=== PATIENT | female | born 1930 | race Two or more races ===

== ENCOUNTER 2019-09-22 10:58 | Inpatient (IN) | payer MEDICARE, MEDICAID ==
[~2019-09-22] VITALS: Ht 154.9 cm; Wt 61.8 kg
--- NOTE | 2019-09-22 11:30 | NUR ---
patient bibra from home, c/o L hip pain s/p fall from bed yesterday. On room air, breathing evenly and unlabored, connected to the monitor and pulse ox. kept comfortable, will continue to monitor accordingly.
[2019-09-22 11:41] LABS: CARBON DIOXIDE 27 mmol/L (21-32); CHLORIDE 111 mmol/L (98-107); CREATININE 2.8 mg/dL (0.6-1.3); GLUCOSE 133 mg/dL (74-106); POTASSIUM 4.1 mmol/L (3.5-5.1); SODIUM SERUM 146 mmol/L (136-145); UREA NITROGEN, BLOOD 61 mg/dL (7-18)
[2019-09-22 11:46] LABS: BASOPHILS # (AUTO) 0.1 /CMM (0.0-0.2); BASOPHILS % (AUTO) 0.7 % (0.0-2.0); EOSINOPHILS % (AUTO) 0.9 % (0.0-6.0); HEMATOCRIT 37 % (33-45); HEMOGLOBIN 12.2 g/dL (11.5-14.8); LYMPHOCYTES # (AUTO) 1.6 /CMM (0.8-4.8); LYMPHOCYTES % (AUTO) 21.8 % (20.0-44.0); MEAN CORPUSCULAR HGB CONC 33 g/dl (31.0-36.0); MEAN CORPUSCULAR VOLUME 93 fL (82-100); MONOCYTES # (AUTO) 0.7 /CMM (0.1-1.30); MONOCYTES % (AUTO) 8.7 % (2.0-12.0); NEUTROPHILS # (AUTO) 5.1 /CMM (1.8-8.9); NEUTROPHILS % (AUTO) 67.9 % (43.0-81.0); PLATELET COUNT (AUTO) 195 /CMM (150-450); RED BLOOD CELL COUNT(AUTO) 4.04 MIL/uL (4.0-5.2); WHITE BLOOD COUNT (AUTO) 7.5 K/uL (4.3-11.0)
[2019-09-22 11:47] LABS: ALANINE AMINOTRANSFERASE 17 U/L (12-78); ALKALINE PHOSPHATASE 144 U/L (46-116); ASPARTATE AMINOTRANSFERASE 16 U/L (15-37); BILIRUBIN,DIRECT 0.1 mg/dL (0.0-0.2); BILIRUBIN,TOTAL 0.3 mg/dL (0.2-1.0); TOTAL PROTEIN, SERUM 6.9 g/dL (6.4-8.2)
--- NOTE | 2019-09-22 12:00 | NUR ---
malachi at bedside for x-ray.
[2019-09-22 12:19] LABS: LYMPHOCYTES % (MANUAL) 19 % (16-48); MONOCYTES % (MANUAL) 6 % (0-11.0); NEUTROPHILS % (MANUAL) 75 (42-76)
--- NOTE | 2019-09-22 12:27 | NUR ---
CALLED BRENDA REED, REMBERTO LING
[2019-09-22] MEDS ORDERED: ALLO100T PO (12:32)
[2019-09-22] MEDS ORDERED: PREG75CA PO (12:32)
[2019-09-22] MEDS ORDERED: ERGO500014 PO (12:32)
[2019-09-22] MEDS ORDERED: FERR325T28 PO (12:32)
[2019-09-22] MEDS ORDERED: MEMA5TAB42 PO (12:32)
[2019-09-22] MEDS ORDERED: INSU100I4 (12:32)
[2019-09-22] MEDS ORDERED: SENN-261 PO (12:32)
[2019-09-22] MEDS ORDERED: LEVO100T9 PO (12:32)
[2019-09-22] MEDS ORDERED: ESOM40CA52 PO (12:32)
[2019-09-22] MEDS ORDERED: AMLO5TAB9 PO (12:32)
[2019-09-22] MEDS ORDERED: DONE10TA44 PO (12:32)
[2019-09-22] MEDS ORDERED: INSU100V7 SUBCUT (12:32)
[2019-09-22] MEDS ORDERED: DOCU-270 PO (12:32)
--- NOTE | 2019-09-22 12:38 | NUR ---
CALLED NATAN PAGED EDNA GUILLERMO
--- NOTE | 2019-09-22 13:16 | NUR ---
209-2 [facility]
--- NOTE | 2019-09-22 13:23 | NUR ---
report given to Yuki Charles for moriah.
[2019-09-22] MEDS ORDERED: MORPHINE SULFATE INJ 2 MG/ML DISP.SYRIN IV ONE (14:00)
[2019-09-22] MEDS ORDERED: ONDANSETRON HCL/PF - ER 4 MG/2 ML VIAL IV ONE (14:00)
[2019-09-22] MEDS ORDERED: IV NS 0.9% 1,000 ML BAG IV ONE (14:00)
[2019-09-22] MEDS ORDERED: ONDANSETRON HCL/PF 4 MG/2 ML VIAL ONE (14:04)
[2019-09-22] MEDS ORDERED: MORPHINE SULFATE INJ 4 MG/ML DISP.SYRIN ONE (14:04)
--- NOTE | 2019-09-22 14:30 | NUR ---
TELEPHONE ANSWERER NOTES PATIENT WAS ADMITTED FROM ER 88 Y/OLD FEMALE QATARI SPEAKER ON Dx OF LEFT HIP Fx. PATIENT A/O X2, FORGETFUL, BUT REDIRECTABLE. PATIENT WAS COMPLAINING OF LEFT HIP PAIN 8/10 PER PAIN SCALE. NO ACUTE RESPIRATORY DISTRESS, BREATHING UNLABORED. V/S TAKEN BP 121/59, P-66, R-19, 02-95 ROOM AIR, T-97.8.IV ACCESS ON RIGHT AC AREA INTACT, SKIN ASSESSMENT DONE CLEAR , HAS LEFT LEG TOES AMPUTATION, AND RIGHT BIG TOE AMPUTATION. PATIENT INCONTINENT USING DIAPER, NEEDS ATTENDED AND ANTICIPATED. HOSPITALIST CECILE GUILLERMO AWARE OF NEW PATIENT AND MEDICATION, CALL LIGHT WITHIN TO REACH. CONTINUED MONITORING.
--- NOTE | 2019-09-22 14:37 | NUR ---
wheeled patient via gurney accompanied by emt in no distress, RN at bedside to assume care.
[2019-09-22 14:41] VITALS: BP 121/59
[2019-09-22] MEDS ORDERED: ONDANSETRON HCL/PF 4 MG/2 ML VIAL IVP PRN (15:00)
[2019-09-22] MEDS ORDERED: Z GUARD REMEDY 2 OZ OINT TP PRN (15:00)
[2019-09-22] MEDS ORDERED: SENNOSIDES 8.6 MG TABLET PO PRN (15:00)
[2019-09-22] MEDS ORDERED: ACETAMINOPHEN 325 MG TABLET PO PRN (15:00)
[2019-09-22] MEDS ORDERED: DEXTROSE 50%-WATER 50 ML DISP.SYRIN IV PRN (15:00)
[2019-09-22 15:30] VITALS: BP 121/59
[2019-09-22] MEDS: IV 1/2NS 1000 ML 1,000 ML IV PRN (15:48)
[2019-09-22] MEDS: MORPHINE SULFATE INJ 2 MG/ML DISP.SYRIN IV PRN ×2 (15:54→23:56)
--- NOTE | 2019-09-22 15:54 | NUR ---
rn notes administered morphine sulfate 2 mg/ml iv push for left hip pain 03/28 per patient request. v/s taken bp 121/59, p-66, r-19. call light within to reach, safety precaution maintained all the time.
[2019-09-22] MEDS: PREGABALIN 25 MG CAPSULE PO SCH (18:14)
[2019-09-22] MEDS: MEMANTINE HCL 5 MG TABLET PO SCH (18:14)
[2019-09-22] MEDS: DOCUSATE SODIUM 100 MG CAPSULE PO SCH (18:14)
[2019-09-22] MEDS: BLOOD SUGAR DIAGNOSTIC 1 EACH STRIP IN SCH ×2 (18:14→21:44)
[2019-09-22] MEDS: INSULIN LISPRO/ASPART 100 UNIT/ML CARTRIDGE SQ SCH (18:16)
--- NOTE | 2019-09-22 18:25 | NUR ---
RN NOTES BS-169MG/DL COVERAGE GIVEN, ADMINISTERED SCHEDULED MEDICATION. MEDICATION WERE ADMINISTERED FOR PAIN EFFECTIVE, PATIENTS DAUGHTER SIGN CONSENT FOR FOR SURGERY WHICH IS SCHEDULED TOMORROW , 1750 PM. V/S STABLE . PATIENT TOLERATED DINNER 30% WITH MINIMAL ASSIST. INFUSING 1/2 NS AT 75 ML/HR ON RIGHT AC ARE. CALL LIGHT WITHIN TO REACH, FAMILY NEXT TO THE BED. ENDORSED ONCOMING NURSE FOLLOW PLAN OF CARE.
--- NOTE | 2019-09-22 19:35 | NUR ---
RN OPEN NOTES RECEIVED PATIENT AWAKE LYING IN BED. A/OX2. NO SIGNS OF DISTRESS OR DISCOMFORT. BREATHING EVEN AND UNLABORED. IV ACCESS IN RAC WITH 1/2 NS INFUSING, PATENT AND INTACT, NO SIGNS OF REDNESS OR INFILTRATION. BED IN LOW LOCKED POSITION WITH SIDE RAILS X2. CALL LIGHT WITHIN REACH. WILL CONTINUE TO MONITOR.
[2019-09-22 20:00] VITALS: BP 107/49
[2019-09-22] MEDS: DONEPEZIL 5 MG TABLET PO SCH (21:41)
[2019-09-22] MEDS: INSULIN GLARGINE, 100 UNIT/ML CARTRIDGE SQ SCH (21:44)
[2019-09-23] MEDS: IV 1/2NS 1000 ML 1,000 ML IV PRN (05:31)
[2019-09-23] MEDS: MORPHINE SULFATE INJ 2 MG/ML DISP.SYRIN IV PRN ×3 (06:16→20:31)
[2019-09-23] MEDS: BLOOD SUGAR DIAGNOSTIC 1 EACH STRIP IN SCH ×4 (06:17→21:03)
[2019-09-23 06:35] LABS: BASOPHILS % (AUTO) 0.7 % (0.0-2.0); EOSINOPHILS % (AUTO) 1.4 % (0.0-6.0); HEMATOCRIT 35 % (33-45); HEMOGLOBIN 11.2 g/dL (11.5-14.8); LYMPHOCYTES # (AUTO) 1.6 /CMM (0.8-4.8); LYMPHOCYTES % (AUTO) 24.5 % (20.0-44.0); MEAN CORPUSCULAR HGB CONC 32 g/dl (31.0-36.0); MEAN CORPUSCULAR VOLUME 92 fL (82-100); MONOCYTES # (AUTO) 0.6 /CMM (0.1-1.30); MONOCYTES % (AUTO) 9.3 % (2.0-12.0); NEUTROPHILS # (AUTO) 4.2 /CMM (1.8-8.9); NEUTROPHILS % (AUTO) 64.1 % (43.0-81.0); PLATELET COUNT (AUTO) 176 /CMM (150-450); RED BLOOD CELL COUNT(AUTO) 3.77 MIL/uL (4.0-5.2); WHITE BLOOD COUNT (AUTO) 6.6 K/uL (4.3-11.0)
--- NOTE | 2019-09-23 06:58 | NUR ---
RN CLOSING NOTES PATIENT RESTING COMFORTABLY IN BED, EASILY AROUSABLE. A/OX2. NO SIGNS OF DISTRESS OR DISCOMFORT. BREATHING EVEN AND UNLABORED. IV ACCESS IN RAC WITH 1/2 NS INFUSING, PATENT AND INTACT, NO SIGNS OF REDNESS OR INFILTRATION. ALL NEEDS MET. NO SIGNIFICANT CHANGES THROUGH THE NIGHT. PATIENT KEPT CLEAN DRY AND COMFORTABLE. BED IN LOW LOCKED POSITION WITH SIDE RAILS X2. CALL LIGHT WITHIN REACH. WILL ENDORSE TO AM SHIFT FOR KIM.
[2019-09-23 07:09] LABS: ALANINE AMINOTRANSFERASE 37 U/L (12-78); ALBUMIN 2.6 g/dL (3.4-5.0); ALKALINE PHOSPHATASE 166 U/L (46-116); ASPARTATE AMINOTRANSFERASE 64 U/L (15-37); BILIRUBIN,TOTAL 0.4 mg/dL (0.2-1.0); CALCIUM, SERUM 8.2 mg/dL (8.5-10.1); CARBON DIOXIDE 24 mmol/L (21-32); CHLORIDE 106 mmol/L (98-107); CHOLESTEROL 132 mg/dL (<200); CREATININE 2.6 mg/dL (0.6-1.3); GLUCOSE 102 mg/dL (74-106); HDL CHOLESTEROL 59 mg/dL (40-60); LDL 54 mg/dL (0-99); MAGNESIUM 1.4 mg/dL (1.8-2.4); PHOSPHORUS 4.1 mg/dL (2.5-4.9); SODIUM SERUM 139 mmol/L (136-145); THYROID STIMULATING HORMONE 0.411 uIU/mL (0.358-3.74); TOTAL PROTEIN, SERUM 6.1 g/dL (6.4-8.2); TRIGLYCERIDES 95 mg/dL (30-150); UREA NITROGEN, BLOOD 58 mg/dL (7-18)
[2019-09-23 07:16] LABS: IRON, SERUM 31 ug/dl (50-175); TOTAL IRON BINDING CAPACITY 220 ug/dl (250-450)
[2019-09-23] MEDS ORDERED: IV 1/2NS 1000 ML 1,000 ML IV SCH (07:21)
[2019-09-23] MEDS: INSULIN LISPRO/ASPART 100 UNIT/ML CARTRIDGE SQ SCH ×3 (07:30→17:30)
--- NOTE | 2019-09-23 07:35 | NUR ---
MS RN OPENING NOTES RECEIVED PT IN BED, AWAKE, A/O 2. PT TOLERATING RA, WITH NO ACUTE RESPIRATORY DISTRESS. PT DENIES ANY PAIN OR DISCOMFORT AT THIS TIME. ALSO DENIES ANY CONCERN OR QUESTIONS AT THE MOMENT. IVF 1/2 NS AT 75ML/HR CHANGED TO 200ML/HR PER DR GARVEY X2 BAGS TO RAC G20, INTACT AND FLUID INFUSING WELL. PT ON NPO EXCEPT MEDS AT THIS TIME, IN PREPARATION FOR 5PM SURGERY WITH DR. JAMES. PT KEPT COMFORTABLE IN BED. CALL LIGHT KEPT WITHIN REACH. PT'S BED IN LOWEST, LOCKED POSITION WITH SR X3. WILL CONTINUE PLAN OF CARE.
[2019-09-23 08:00] VITALS: BP 120/58
[2019-09-23] MEDS: MEMANTINE HCL 5 MG TABLET PO SCH ×2 (08:41→17:00)
[2019-09-23] MEDS: PREGABALIN 25 MG CAPSULE PO SCH ×2 (08:41→17:00)
[2019-09-23] MEDS: ALLOPURINOL 100 MG TABLET PO SCH (08:42)
[2019-09-23] MEDS: AMLODIPINE BESYLATE 5 MG TABLET PO SCH (08:42)
[2019-09-23] MEDS: DOCUSATE SODIUM 100 MG CAPSULE PO SCH ×2 (08:42→17:00)
[2019-09-23] MEDS: LEVOTHYROXINE SODIUM 100 MCG TABLET PO SCH (08:42)
[2019-09-23] MEDS: FERROUS SULFATE (325 MG) 325 MG/TAB TABLET PO SCH (08:42)
[2019-09-23] MEDS: PANTOPRAZOLE 40 MG VIAL IV SCH (08:44)
[2019-09-23] MEDS ORDERED: NEXIUM 40 MG VIAL IV SCH (09:00)
[2019-09-23] MEDS ORDERED: LEVOTHYROXINE SODIUM 100 MCG TABLET PO SCH (09:00)
--- NOTE | 2019-09-23 10:04 | NUR ---
MS RN NOTES RECEIVED CALL FROM PHARMACY REGARDING MAGNESIUM LVL THAT THEY CANT REPLACE PER CREA OF 2.6, AGAINST THEIR [PROTOCOL. HOSPITALIST/TS MADE AWARE AND ORDERED 2GMS OF MG VIA IV. ORDER PLACED. PT MADE AWARE. WILL CONTINUE TO MONITOR.
[2019-09-23] MEDS ORDERED: Magnesium 1GM/D5W 100ML PREMIX PIGGYBACK IV ONE (10:30)
[2019-09-23] MEDS: Magnesium 1GM/D5W 100ML PREMIX 100 ML IV SCH ×2 (10:33→11:35)
[2019-09-23] MEDS ORDERED: IV D5/0.45 NACL 1,000 ML IV ONE (12:30)
[2019-09-23] MEDS ORDERED: BACITRACIN 50000 UNITS/VIAL ONE (13:34)
[2019-09-23] MEDS ORDERED: BUPIVACAINE 0.5 % PF 150 MG/30 ML VIAL ONE (13:34)
[2019-09-23] MEDS ORDERED: ANESTHESIA TRAY IN PYXIS 1 EA TRAY MC ONE (13:34)
[2019-09-23 14:53] LABS: APPEARANCE,URINE SL CLOUDY (CLEAR); BILIRUBIN,URINE NEGATIVE (NEGATIVE); BLOOD, URINE TRACE-INTA Ery/uL (NEGATIVE); COLOR,URINE YELLOW (YELLOW); KETONES,URINE NEGATIVE (NEGATIVE); LEUKOCYTE ESTERASE ,URINE SMALL (NEGATIVE); NITRITE, URINE POSITIVE (NEGATIVE); PROTEIN,URINE NEGATIVE (NEGATIVE); UGLUCOSE NEGATIVE (NEGATIVE); UROBILINOGEN,URINE 0.2 EU/dL (0.2)
[2019-09-23 15:04] LABS: BACTERIA,URINE 3+ /HPF (None Seen); RBC,URINE 0-2 /HPF (0-2); SQUAMOUS EPITHELIAL CELL,UR Few /HPF (None Seen); WBC,URINE 81-100 /HPF (0-3)
[2019-09-23 15:07] LABS: CREATININE, URINE 57.5 MG/DL (30.0-125.0); URINE TOTAL PROTEIN 16.8 mg/dL (0-11.9)
[2019-09-23 15:19] LABS: EOSINOPHIL,URINE Rare
[2019-09-23 16:00] VITALS: BP 115/50
--- NOTE | 2019-09-23 16:50 | NUR ---
MS RN NOTES PT LEFT THE UNIT FOR SCHEDULED SURGERY AT 5PM.
[2019-09-23] MEDS ORDERED: FENTANYL PF 100MCG/2ML AMPUL ONE (16:59)
--- NOTE | 2019-09-23 19:01 | NUR ---
MS RN CLOSING NOTES PT IN OR AT THE MOMENT. WILL ENDORSE TO TELECOMMUNICATIONS OFFICER NURSE FOR KIM.
[2019-09-23] MEDS ORDERED: IV LR 1000 ML 1,000 ML IV PRN (19:30)
[2019-09-23 19:52] LABS: HEMOGLOBIN 10.8 g/dL (11.5-14.8)
[2019-09-23 20:00] VITALS: BP 111/58
[2019-09-23] MEDS: INSULIN GLARGINE, 100 UNIT/ML CARTRIDGE SQ SCH (21:01)
[2019-09-23] MEDS: MUPIROCIN OINT 2% 22 GM TUBE SCH (21:02)
[2019-09-23] MEDS: DONEPEZIL 5 MG TABLET PO SCH (21:03)
[2019-09-24] MEDS: CEFAZOLIN 2 GM in IV D5W 100 ML IV SCH ×2 (01:15→01:18)
[2019-09-24] MEDS: HYDROCODONE/APAP 5/325MG 1 EACH TABLET PO PRN ×2 (02:53→13:35)
[2019-09-24] MEDS: BLOOD SUGAR DIAGNOSTIC 1 EACH STRIP IN SCH ×4 (05:50→21:35)
--- NOTE | 2019-09-24 06:31 | NUR ---
MS RN NOTES AWAKE & RESPONSIVE. NOT IN ANY DISTRESS. NO SOB NOTED. DENIES ANY PAIN OR DISCOMFORT AT THIS TIME. WITH IVF INFUSING WELL. WITH F/C DRAINING TO YELLOWISH OUTPUT MODERATE IN AMOUNT. DRESSING @ L HIP C/D/I. AM CARE DONE. MONITORED ACCORDINGY. CALL LIGHT WITHIN REACH. BED IN LOWEST POSITION. SR UP X 3 WITH BED ALARM ON FOR SAFETY. WILL ENDORSE TO NEXT SHIFT.
[2019-09-24 07:13] LABS: HEMATOCRIT 35 % (33-45); LYMPHOCYTES # (AUTO) 0.2 /CMM (0.8-4.8); LYMPHOCYTES % (AUTO) 2.2 % (20.0-44.0); MEAN CORPUSCULAR HGB CONC 32 g/dl (31.0-36.0); MEAN CORPUSCULAR VOLUME 93 fL (82-100); MONOCYTES # (AUTO) 0.3 /CMM (0.1-1.30); MONOCYTES % (AUTO) 3.4 % (2.0-12.0); NEUTROPHILS # (AUTO) 8.8 /CMM (1.8-8.9); NEUTROPHILS % (AUTO) 94.4 % (43.0-81.0); PLATELET COUNT (AUTO) 164 /CMM (150-450); RED BLOOD CELL COUNT(AUTO) 3.73 MIL/uL (4.0-5.2); WHITE BLOOD COUNT (AUTO) 9.4 K/uL (4.3-11.0)
--- NOTE | 2019-09-24 07:20 | NUR ---
RN OPENING NOTES RECEIVED PATIENT IN STABLE CONDITION. AWAKE AND RESPONSIVE TO VERBAL AND TACTILE STIMULI. A/OX2, ARABIC SPEAKING. NOT IN ANY FORM OF DISTRESS. NO SOB. DENIED PAIN OR DISCOMFORT AT THIS TIME. IV ACCESS INTACT AND PATENT. PAGAN IN PLACE DRAINING CLEAR YELLOW URINE. KEPT PATIENT SAFE AND COMFORTABLE. SCD PUMPS IN PLACE. BED IN LOW/LOCKED POSITION, SIDERAILS UPX2, CALL LIGHT IN REACH. WILL CONT TO MONIOTR ACCORDINGLY.
[2019-09-24 07:24] LABS: CHLORIDE 99 mmol/L (98-107); POTASSIUM 4.7 mmol/L (3.5-5.1); SODIUM SERUM 132 mmol/L (136-145)
[2019-09-24] MEDS: INSULIN LISPRO/ASPART 100 UNIT/ML CARTRIDGE SQ SCH ×3 (07:30→18:15)
[2019-09-24 07:40] LABS: ALANINE AMINOTRANSFERASE 53 U/L (12-78); ALBUMIN 2.7 g/dL (3.4-5.0); ALKALINE PHOSPHATASE 212 U/L (46-116); ASPARTATE AMINOTRANSFERASE 54 U/L (15-37); BILIRUBIN,TOTAL 0.3 mg/dL (0.2-1.0); CALCIUM, SERUM 8.6 mg/dL (8.5-10.1); CARBON DIOXIDE 21 mmol/L (21-32); CREATININE 2.4 mg/dL (0.6-1.3); PHOSPHORUS 4.7 mg/dL (2.5-4.9); TOTAL PROTEIN, SERUM 6.6 g/dL (6.4-8.2); UREA NITROGEN, BLOOD 51 mg/dL (7-18)
[2019-09-24 07:41] LABS: CREATINE KINASE, TOTAL 58 U/L (26-192)
[2019-09-24 07:49] LABS: GLUCOSE 409 mg/dL (74-106)
[2019-09-24 08:00] VITALS: BP 105/57
[2019-09-24] MEDS: INSULIN REGULAR, HUMAN 100 UNIT/ML 3 ML VIAL SQ PRN (08:02)
[2019-09-24] MEDS: PANTOPRAZOLE 40 MG VIAL IV SCH (08:15)
[2019-09-24] MEDS: DOCUSATE SODIUM 100 MG CAPSULE PO SCH ×2 (08:16→16:18)
[2019-09-24] MEDS: FERROUS SULFATE (325 MG) 325 MG/TAB TABLET PO SCH (08:16)
[2019-09-24] MEDS: MEMANTINE HCL 5 MG TABLET PO SCH ×2 (08:16→16:15)
[2019-09-24] MEDS: PREGABALIN 25 MG CAPSULE PO SCH ×2 (08:16→16:15)
[2019-09-24] MEDS: ALLOPURINOL 100 MG TABLET PO SCH (08:16)
[2019-09-24] MEDS: LEVOTHYROXINE SODIUM 100 MCG TABLET PO SCH (08:16)
[2019-09-24] MEDS: MUPIROCIN OINT 2% 22 GM TUBE SCH ×2 (08:41→21:36)
[2019-09-24] MEDS: AMLODIPINE BESYLATE 5 MG TABLET PO SCH (08:41)
--- NOTE | 2019-09-24 08:42 | NUR ---
rn notes called Holland, pharmacist, regarding insulin scheduled at 0730, informed Holland that 10 units regular insulin ACHS was given. per Holland, hold the lispro for now, and verify with MD if both "0730 scheduled insulin" or "ACHS" in AM is ok to continue or only one of the two is needed. Scheduled 5 units lispro held. regular 10 units insulin given already for bs 409. will notify
[2019-09-24] MEDS: CEPHALEXIN MONOHYDRATE 250 MG CAPSULE PO SCH ×2 (15:32→21:35)
[2019-09-24 16:00] VITALS: BP 117/45
--- NOTE | 2019-09-24 17:00 | NUR ---
rn notes TEMP= 96.9. AMY LOVETT PROVIDED. KEPT PATIENT COMFORTABLE.
[2019-09-24] MEDS ORDERED: ENOXAPARIN SODIUM 30 MG/0.3 ML DISP.SYRIN SQ SCH (18:00)
--- NOTE | 2019-09-24 19:30 | NUR ---
RN CLOSING NOTES PATIENT IN STABLE CONDITION. ALL NEEDS ATTENDED AND PROVIDED. ALL DUE MEDS GIVEN ORDERED. TURNED AND REPOSITIONED PATIENT EVERY 2HRS AND NEEDED. KEPT PATIENT SAFE AND COMFORTABLE. BED IN LOW,LOCKED POSITION. SIDERAILS UPX2, SEMIFOWLER POSITION. CALL LIGHT IN REACH. ENDORSED ACCORDINGLY
--- NOTE | 2019-09-24 19:35 | NUR ---
RN OPENING NOTES RECEIVED REPORT FROM JOS VYAS. FOUND Pt AWAKE, RESTING IN BED, FAMILY VISITING AT BEDSIDE. NO S/S OF ACUTE DISTRESS OR SOB NOTED. Pt IS A/OX2, WITH BASELINE DEMENTIA, UPPER SORBIAN SPEAKING ONLY. PAGAN CATHETER IN PLACE, WILL REMOVE LATER TONIGHT PER ORDER TO REMOVE PAGAN POST OP DAY 1. IV ACCESS ON RAC #20G. Pt IS ON ISO FOR MRSA NARES. PER REPORT Pt's TEMP WAS RUNNING LOW, SO BEAR HUGGER WAS PLACED ON Pt TO HELP INCREASE HER BODY TEMP. PER Pt STATEMENT, Pt DOES NOT FEEL COLD. CURRENT TEMP IS 97.5F. WILL CONTINUE TO MONITOR Pt's CONDITION AND SAFETY THROUGHOUT THE NIGHT.
[2019-09-24 20:00] VITALS: BP 115/55
[2019-09-24] MEDS: DONEPEZIL 5 MG TABLET PO SCH (21:35)
[2019-09-24] MEDS: INSULIN GLARGINE, 100 UNIT/ML CARTRIDGE SQ SCH (21:49)
--- NOTE | 2019-09-24 22:00 | NUR ---
RN NOTES HS ACCUCHECK 179. ONLY ADMINISTERED LANTUS 8UN VIA LT DELTOID. PER FAMILY REQUEST, SON STATED THAT Pt's BLOOD SUGAR TENDS TO DROP LOW IN THE MORNING. SO DID NOT GIVE ADDITIONAL INSULIN COVERAGE AT THIS TIME. WILL REASSESS BG IN THE AM.
[2019-09-25] MEDS: CEPHALEXIN MONOHYDRATE 250 MG CAPSULE PO SCH (04:17)
[2019-09-25] MEDS: BLOOD SUGAR DIAGNOSTIC 1 EACH STRIP IN SCH ×2 (06:32→12:19)
[2019-09-25] MEDS: INSULIN REGULAR, HUMAN 100 UNIT/ML 3 ML VIAL SQ PRN (06:53)
[2019-09-25 07:13] LABS: BASOPHILS % (AUTO) 0.3 % (0.0-2.0); EOSINOPHILS % (AUTO) 0.3 % (0.0-6.0); HEMATOCRIT 29 % (33-45); HEMOGLOBIN 9.4 g/dL (11.5-14.8); LYMPHOCYTES # (AUTO) 0.9 /CMM (0.8-4.8); LYMPHOCYTES % (AUTO) 9.6 % (20.0-44.0); MEAN CORPUSCULAR HGB CONC 33 g/dl (31.0-36.0); MEAN CORPUSCULAR VOLUME 92 fL (82-100); MONOCYTES # (AUTO) 0.8 /CMM (0.1-1.30); NEUTROPHILS # (AUTO) 7.9 /CMM (1.8-8.9); NEUTROPHILS % (AUTO) 81.8 % (43.0-81.0); PLATELET COUNT (AUTO) 139 /CMM (150-450); RED BLOOD CELL COUNT(AUTO) 3.14 MIL/uL (4.0-5.2); WHITE BLOOD COUNT (AUTO) 9.6 K/uL (4.3-11.0)
--- NOTE | 2019-09-25 07:30 | NUR ---
RN NOTES NEW IV ACCESS STARTED ON LAC #24G
--- NOTE | 2019-09-25 07:50 | NUR ---
M/S RN NOTES PATIENT AWAKE IN BED, NO RESPIRATORY DISTRESS, NO C/O PAIN AT THIS TIME. SKIN WARM TO TOUCH, IV ON THE LAC #24G, INTACT AND PATENT, LR INFUSING AT 75ML/HR. PATIENT'S DRESSING ON THE LEFT HIP C/D/I. PATIENT'S NEEDS ATTENDED, BED ON LOWEST LOCKED POSITION, CALL LIGHT WITHIN REACH. WILL CONTINUE TO MONITOR.
--- NOTE | 2019-09-25 07:51 | NUR ---
RN CLOSING NOTES NO SIGNIFICANT CHANGES IN Pt's CONDITION. NO S/S OF ACUTE DISTRESS OR SOB NOTED DURING THE NIGHT. ALL NEEDS MET AND ATTENDED TO. SAFETY MEASURES IN PLACE. ENDORSED TO DAYSHIFT RN FOR Pt's KIM.
[2019-09-25] MEDS: LEVOTHYROXINE SODIUM 100 MCG TABLET PO SCH (07:57)
[2019-09-25 08:00] VITALS: BP 119/62
[2019-09-25] MEDS: INSULIN LISPRO/ASPART 100 UNIT/ML CARTRIDGE SQ SCH ×2 (08:05→12:27)
[2019-09-25] MEDS: FERROUS SULFATE (325 MG) 325 MG/TAB TABLET PO SCH (08:08)
[2019-09-25] MEDS: PREGABALIN 25 MG CAPSULE PO SCH ×2 (08:08→16:04)
[2019-09-25] MEDS: ALLOPURINOL 100 MG TABLET PO SCH (08:08)
[2019-09-25] MEDS: DOCUSATE SODIUM 100 MG CAPSULE PO SCH ×2 (08:08→16:04)
[2019-09-25] MEDS: MEMANTINE HCL 5 MG TABLET PO SCH ×2 (08:09→16:04)
[2019-09-25] MEDS: AMLODIPINE BESYLATE 5 MG TABLET PO SCH (08:09)
[2019-09-25] MEDS: PANTOPRAZOLE 40 MG VIAL IV SCH (08:09)
[2019-09-25] MEDS: MUPIROCIN OINT 2% 22 GM TUBE SCH (08:10)
[2019-09-25 08:36] LABS: CALCIUM, SERUM 8.6 mg/dL (8.5-10.1); CARBON DIOXIDE 22 mmol/L (21-32); CHLORIDE 99 mmol/L (98-107); CREATININE 2.4 mg/dL (0.6-1.3); GLUCOSE 150 mg/dL (74-106); POTASSIUM 4.7 mmol/L (3.5-5.1); SODIUM SERUM 131 mmol/L (136-145); UREA NITROGEN, BLOOD 52 mg/dL (7-18)
[2019-09-25 08:45] LABS: PHOSPHORUS 3.7 mg/dL (2.5-4.9)
[2019-09-25] MEDS: HYDROCODONE/APAP 5/325MG 1 EACH TABLET PO PRN ×2 (10:00→16:04)
[2019-09-25 10:08] LABS: PTH, INTACT 117 pg/mL (15-65)
[2019-09-25] MEDS ORDERED: HYDR-4384 PO (11:24)
[2019-09-25] MEDS ORDERED: MERO500V23 IV (11:24)
[2019-09-25] MEDS ORDERED: MEROPENEM 500 MG in IV NS 0.9% 50 ML IV SCH (12:00)
[2019-09-25 15:08] LABS: *SPE A/G RATIO 0.9 (0.7-1.7); *SPE ALPHA-1-GLOBULIN 0.4 g/dL (0.0-0.4); *SPE ALPHA-2-GLOBULIN 0.9 g/dL (0.4-1.0); *SPE GLOBULIN, TOTAL 3.4 g/dL (2.2-3.9); *SPE M-SPIKE Not Observed g/dL (Not Observed); *SPEGAMMA GLOBULIN 1.1 g/dL (0.4-1.8)
[2019-09-25 16:00] VITALS: BP 125/61
--- NOTE | 2019-09-25 16:45 | NUR ---
M/S RN NOTES PATIENT DISCHARGED IN STABLE CONDITION, VSS, NO RESPIRATORY DISTRESS, PAIN TOLERABLE AT LEVEL 4/10 WITH PAIN MEDICATION PRESCRIBED. FAMILY AT BEDSIDE, GIVEN DISCHARGE INSTRUCTIONS TO FAMILY AND PATIENT,VERBALIZED UNDERSTANDING. SKIN WARM TO TOUCH, IV ACCESS SITE LEAKING, REMOVED AND APPLIED PRESSURE DRESSING. PATIENT'S SKIN ASSESSED, CLEANED SURGICAL SITE WITH IODINE, DRESSING CHANGED, COVERED WITH NEW DRESSING AND TAPE. MD AWARE OF DRESSING CHANGE. PHOTOS TAKEN AND PUT IN CHART. PATIENT HAS NO BELONGINGS, BELONGINGS LIST SIGNED. PATIENT'S NEEDS ATTENDED. REPORT GIVEN TO INJECTION MOLDER. PATIENT LEFT WITH PARAMEDICS VIA GURNEY. REPORT GIVEN TO KIERAN AT [facility].
[2019-09-28] MEDS ORDERED: ERGOCALCIFEROL (VITAMIN D 2) 50,000 UNIT CAPSULE PO SCH (09:00)
== END 2019-09-25 17:45 | DRG 480 ==
LOC: ER 11:00 → MEDSG2 14:00
PROVIDERS: ADMIT Nurse Practitioner Acute Care; ATTEND Nurse Practitioner Acute Care
PROC: 0QS706Z Reposition Left Upper Femur with Intramedullary Internal Fixation Device, Open Approach (ICD-10-PCS; principal; 2019-09-23)
DX: M80.052A Age-related osteoporosis with current pathological fracture, left femur, initial encounter for fracture (principal); N17.0 Acute kidney failure with tubular necrosis; E87.0 Hyperosmolality and hypernatremia; N39.0 Urinary tract infection, site not specified; Z16.12 Extended spectrum beta lactamase (ESBL) resistance; I12.9 Hypertensive chronic kidney disease with stage 1 through stage 4 chronic kidney disease, or unspecified chronic kidney disease; F03.90 Unspecified dementia, unspecified severity, without behavioral disturbance, psychotic disturbance, mood disturbance, and anxiety; E11.22 Type 2 diabetes mellitus with diabetic chronic kidney disease; N18.9 Chronic kidney disease, unspecified; B96.20 Unspecified Escherichia coli [E. coli] as the cause of diseases classified elsewhere; E11.65 Type 2 diabetes mellitus with hyperglycemia; E83.42 Hypomagnesemia; E03.9 Hypothyroidism, unspecified; K21.9 Gastro-esophageal reflux disease without esophagitis; Z79.4 Long term (current) use of insulin; W06.XXXA Fall from bed, initial encounter; Y93.9 Activity, unspecified; Y92.009 Unspecified place in unspecified non-institutional (private) residence as the place of occurrence of the external cause; M10.9 Gout, unspecified
CPT/HCPCS: 36415; 71045-TC; 73020; 73502; 76770-TC; 80048-TC; 80053-TC; 80061-TC; 80076-TC; 81000-TC; 82550-TC; 82570-TC; 82728-TC; 82962-TC; 83540-TC; 83735-TC; 83970; 84100-TC; 84155; 84155-TC; 84165; 84300-TC; 84439-TC; 84443-TC; 84484-TC; 85025-TC; 85027-TC; 85730-TC; 86850-TC; 87081-TC; 87086-TC; 87186-TC; 93307-TC; 97110-TC; 97116-TC; 97530-TC; A4216; A6209; A6253; C1713; C9113; G0378; J0690; J1100; J1650; J1815; J2185; J2270; J2405; J2704; J3010; J3475; J3490; J7030; J7060; J7120